=== PATIENT | female | born 2000 | race Caucasian/White ===

== ENCOUNTER 2024-06-23 07:42 | Inpatient (IN) ==
[2024-06-23] MEDS ORDERED: OXYTOCIN 30 UNITS/NSS 30 UNITS/500 ML BAG IV PRN (08:14)
[2024-06-23] MEDS ORDERED: LIDOCAINE 1% LOCAL 20 ML VIAL INFIL PRN (08:14)
--- NOTE | 2024-06-23 08:18 | History & Physical Report ---
Date of Service June 23, 2024 Assessment & Plan (1) 38 weeks gestation of : (2) IUGR (intrauterine growth restriction) affecting care of mother: (3) Gestational diabetes mellitus (GDM) affecting , antepartum: Plan admit for iol. Much more favorable cervix. STart pitocin. arom when indicated. fetus category one. Anticipate . check blood sugar q 2 hrs. Admission and Anticipated Discharge Date Admission Date: June 23, 2024 History of Present Illness Chief Complaint: iol, iugr Primary Care Provider: NO PCP Patient is a 23yowf with iup at 38 6/7 weeks who presents for iol for iugr. Last measured efw 9%. Patient had bulb placed last night and it fell out around midnight. She has had some bleeding but minimal. Some cramping. and Delivery Plans Late presentation to care *dating by 3rd tri u/s *neg drug profile GDM at 30 wks *Begin monthly Growth US's @24wks IUGR 9%ile at 36 weeks *Twice weekly NST/DVP@Dx *Weeklyl doppler@Dx *Growth US Q4wk @Dx *Deliver [id number] (unless abnml flow) - IOL 06/23 *Deliver 37wks (less than 3rd%) OB Labs: Blood Type O Positive 04/12/24 Antibody Screen NEGATIVE 04/12/24 Hgb 11.8 g/dl (12.0-16.0) L 04/12/24 Hct 36.4 % (37.0-47.0) L 04/12/24 MCV 86.3 fL (80.0-100.0) 04/12/24 Plt Count 230 K/uL (130-400) 04/12/24 VZV IgG Antibody 256.60 index 04/16/23 Rubella IgG Antibody Immune (Immune) 04/12/24 Treponema pallidum Ab Negative (Negative) 04/12/24 Hep Bs Antigen Negative (Negative) 04/12/24 Hepatitis C Antibody Negative (Negative) 04/12/24 Hepatitis C Ab (EIA) NON-REACTIVE (NON-REACTIVE) 04/16/23 HIV 1&2 Ab/P24 Ag 4thGn Negative (Negative) 04/12/24 Glucose 1 Hr 50 gm 137 mg/dl (70-130) H 04/12/24 OB Optional Labs: Chlamydia trachomatis RNA Not Detected (NotDetected) 04/12/24 Neisseria gonorrhoeae RNA Not Detected (NotDetected) 04/12/24 gbs neg Allergies Allergy/AdvReac Type Severity Reaction Status Date / Time Sulfa (Sulfonamide Allergy Intermediate Hives Verified 06/22/24 10:47 Antibiotics) Home Medications Medication Instructions Recorded Confirmed Type blood sugar diagnostic (OneTouch #120 ea 05/27/24 06/22/24 Rx Verio test strips) blood-glucose meter (OneTouch #1 ea 05/27/24 06/22/24 Rx Verio Reflect Meter) lancets 33 gauge (OneTouch Delica #120 ea 05/27/24 06/22/24 Rx Plus Lancet) vits no.124-ferrous fum 1 tab PO HS 06/20/24 06/22/24 History 27 mg iron-folic acid 800 mcg tablet ( Vitamin) Patient History Medical History History of PCOS History of chicken pox Depression with anxiety Surgical History No history of previous surgery Family History Mother Hypertension Depression Denies family history of Ovarian cancer Breast cancer Colorectal cancer Social History Smoking Status: Former smoker Tobacco Type: E-cigarettes / Vaping Second Hand Exposure: No; Do You Dip or Chew Tobacco: No; Tobacco Cessation Education Requested by Patient: No Hx Alcohol Use: No Hx Substance Use: No Preferred Language: [place] Communication Ability: Effective [place] Lineman Required: No Beliefs That Will Affect Care: None marital status: Single marital status details: anahi Lyons (30) [phone] Current Living Situation: Significant Other Current Living Situation Comment: Avelino Bennett current occupational status: employed 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 Other Information That Helps Us Care for You: No Feels Safe at Home: Yes Safety Concerns: Feels Safe At This Time Assistive Devices: None OB History g1 present Physical Exam Constitutional: WD/WN, vitals as above Cardiovascular: Extremities: no calf tenderness and no edema Gastrointestinal (Abdomen): obese, soft, nt Psychiatric: A+Ox3, euthymic affect Genitourinary: cx--3-4/75/-2/soft/post too--cl efm--140s wtih mod variability accels to 150s, no decels Results & Data Vital Signs (Past 12 Hours) Vital Signs Pulse BP 06/23/24 08:14 90 139/85 Code Status & VTE Plan VTE Prophylaxis Plan VTE Prophylaxis will be ordered: No Coding Level of Care Code None Diagnoses 38 weeks gestation of Z3A.38 IUGR (intrauterine growth restriction) affecting care of mother O36.5990 Gestational diabetes mellitus (GDM) affecting , antepartum O24.419
[2024-06-23] MEDS: LACTATED RINGER'S 1,000 ML IV PRN (08:45)
[2024-06-23] MEDS: OXYTOCIN 30 UNITS/NSS 30 UNITS/500 ML BAG IV PRN (09:02)
[2024-06-23 09:12] LABS: Hemoglobin 12.5 g/dl (12.0-16.0); Mean Corpuscular Hemoglobin 28.9 pg (25.0-34.0); Mean Corpuscular Hgb Conc 32.9 g/dL (32.0-36.0); Mean Platelet Volume 11.8 fL (9.4-12.4); Platelet Count 187 K/uL (130-400); RDW Coefficient of Variation 15.7 % (11.5-14.5); RDW Standard Deviation 50.2 fL (36.4-46.3); Red Blood Count 4.32 M/uL (4.20-5.40); White Blood Count 13.22 K/ul (4.8-10.8)
--- NOTE | 2024-06-23 09:45 | Labor Progress Brief Note ---
Date of Service June 23, 2024 Subjective ctsp because of an essentially spontaneous decel to the 70s that lasted about 5 minutes. the pit had just been started 15 min before and was only at 2. Patient notes she felt crampy at the time and also there was movement. Assessment & Plan (1) IUGR (intrauterine growth restriction) affecting care of mother: Plan Discussed that this is a bit concerning given that we have just started the induction. this may be a one time event or associated with movement. However, it could be a sign that this fetus is not going to tolerate any stress. Discussed this in detail with the patient and . As have had complete recovery, we can continue the induction process. However if this continues, would recommend proceeding with c/s delivery. they express understanding. As the fetus has recovered, will restart pitocin. Admission and Anticipated Discharge Date Admission Date: June 23, 2024 Physical Exam Physical Exam: cx--deferred toco--cl efm--decel to 70s that lasted for about 5 min. Now 150s with mod variability, accels to 170s, no decels resolved with position change and stop pit Results & Data Vital Signs (Past 12 Hours) Vital Signs Temp Pulse Resp BP Pulse Ox 06/23/24 09:37 85 98 06/23/24 09:36 88 122/70 06/23/24 09:32 82 98 06/23/24 09:27 88 98 06/23/24 09:22 82 98 06/23/24 09:21 91 H 135/85 06/23/24 09:06 88 137/83 06/23/24 08:16 37.0 C 90 20 139/85 06/23/24 08:14 90 139/85 Coding Level of Care Code None Diagnoses IUGR (intrauterine growth restriction) affecting care of mother O36.5990
[2024-06-23] MEDS: CALCIUM CARBONATE 500 MG CHEWABLE TAB PO PRN (09:57)
--- NOTE | 2024-06-23 14:05 | Labor Progress Brief Note ---
Date of Service June 23, 2024 Subjective Discussed situation with patient and in a pretty good contraction pattern and would recommend arom. she is ok with proceeding. Assessment & Plan (1) 38 weeks gestation of : (2) IUGR (intrauterine growth restriction) affecting care of mother: Plan arom for clear fluid. Fetus category one. continue pitocin. anticipate . Admission and Anticipated Discharge Date Admission Date: June 23, 2024 Physical Exam Physical Exam: cx--/-2 arom--clear fluid toco--q2-4min, pit at 8 efm--140s with mod varaibility, accels to 160s, no decels Results & Data Vital Signs (Past 12 Hours) Vital Signs Temp Pulse Resp BP Pulse Ox 06/23/24 14:01 96 H 96 06/23/24 13:56 92 H 97 06/23/24 13:51 97 06/23/24 13:51 90 06/23/24 13:51 88 127/63 06/23/24 13:46 89 96 06/23/24 13:41 95 H 96 06/23/24 13:36 94 H 124/70 96 06/23/24 13:31 91 H 97 06/23/24 13:15 95 H 97 06/23/24 13:10 87 97 06/23/24 13:07 88 136/63 06/23/24 13:05 96 H 97 06/23/24 13:00 88 96 06/23/24 12:55 88 96 06/23/24 12:50 90 122/64 96 06/23/24 12:45 92 H 97 06/23/24 12:40 89 96 06/23/24 12:36 86 118/69 06/23/24 12:35 87 97 06/23/24 12:30 102 H 97 06/23/24 12:25 93 H 97 06/23/24 12:21 86 138/85 06/23/24 12:20 92 H 96 06/23/24 12:15 97 H 97 06/23/24 12:10 88 96 06/23/24 12:07 87 139/91 06/23/24 12:05 90 97 06/23/24 12:00 90 97 06/23/24 11:55 90 96 06/23/24 11:44 86 97 06/23/24 11:39 87 97 06/23/24 11:37 92 H 131/71 06/23/24 11:34 89 97 06/23/24 11:29 91 H 96 06/23/24 11:24 94 H 97 06/23/24 11:22 95 H 130/77 06/23/24 11:19 87 97 06/23/24 11:14 91 H 97 06/23/24 11:09 94 H 97 06/23/24 11:07 83 148/87 H 06/23/24 11:04 89 97 06/23/24 10:59 90 96 06/23/24 10:54 84 97 06/23/24 10:51 85 126/68 06/23/24 10:49 87 96 06/23/24 10:44 102 H 96 06/23/24 10:39 98 H 97 06/23/24 10:36 99 H 119/71 06/23/24 10:34 92 H 97 06/23/24 10:29 82 96 06/23/24 10:24 82 95 06/23/24 10:22 82 120/71 06/23/24 10:19 83 96 06/23/24 10:14 80 96 06/23/24 10:09 81 97 06/23/24 10:06 82 121/72 06/23/24 10:04 79 97 06/23/24 09:59 88 97 06/23/24 09:54 81 98 06/23/24 09:47 99 H 97 06/23/24 09:42 86 98 06/23/24 09:37 85 98 06/23/24 09:36 88 122/70 06/23/24 09:32 82 98 06/23/24 09:27 88 98 06/23/24 09:22 82 98 06/23/24 09:21 91 H 135/85 06/23/24 09:06 88 137/83 06/23/24 08:16 37.0 C 90 20 139/85 06/23/24 08:14 90 139/85 Coding Level of Care Code None Diagnoses 38 weeks gestation of Z3A.38 IUGR (intrauterine growth restriction) affecting care of mother O36.5990
--- NOTE | 2024-06-23 15:09 | Communication Note ---
Date of Service: June 23, 2024 patient got up to go to the bathroom and when returned baby was in the 90s, recovered spontaneously, now in 150s. Continued to discuss concerns for situation. Feel we can still proceed with current plan of continued attempt at vaginal delivery as fetus has recovered. Discussed worst case senario would be a decel that occurs without recovery and need for stat c/s. Patient expresses understanding of the situation. She is ok with continued management.
--- NOTE | 2024-06-23 16:04 | Anesthesiology Consultation ---
Date of Service June 23, 2024 Assessment & Plan Chart Review Chart Review: Patient NOT seen in Pre Admission Testing and Acceptable Risk for Labor Epidural Consults Requested none ASA ASA3 Proposed Anesthesia Anesthesia Type: Labor Epidural Risk / Benefits Reviewed With: PT / POA / Parent / Guardian, Accepts Plan and Informed Consent Obtained History Height/Weight Height: 5 ft 3 in Weight: 115.666 kg Allergies Allergy/AdvReac Type Severity Reaction Status Date / Time Sulfa (Sulfonamide Allergy Intermediate Hives Verified 06/22/24 10:47 Antibiotics) Medications Home Medications Medication Instructions Recorded Confirmed Last Taken blood sugar diagnostic (OneTouch #120 ea 05/27/24 06/22/24 Unknown Verio test strips) blood-glucose meter (OneTouch #1 ea 05/27/24 06/22/24 Unknown Verio Reflect Meter) lancets 33 gauge (OneTouch Delica #120 ea 05/27/24 06/22/24 Unknown Plus Lancet) vits no.124-ferrous fum 1 tab PO HS 06/20/24 06/22/24 06/22/24 27 mg iron-folic acid 800 mcg tablet ( Vitamin) Active Medications Generic Name Dose Route Start Last Admin Trade Name Freq PRN Reason Stop Dose Admin Calcium Carbonate 500 mg 06/23/24 08:14 06/23/24 09:57 Calcium Carbonate 500 Mg Chewable Tab PO 07/23/24 08:13 500 mg Q6H PRN Administration Indigestion Lactated Ringer's 1,000 mls @ 125 mls/hr 06/23/24 08:14 06/23/24 08:45 Lr IV 06/25/24 08:13 125 mls/hr .Q8H PRN Administration L&D Protocol Protocol Oxytocin 30 units in 500 mls @ 10 mls/hr 06/23/24 08:33 06/23/24 14:45 Pitocin 30 Units/Nss IV 06/25/24 08:32 0.6 units/hr .Q24H PRN 10 mls/hr Labor Induction/Augmentation Titration Protocol 0.6 UNITS/HR NPO Date Last Intake of Fluids: 06/23/24 Time Last Intake of Fluids: 15:00 Date Last Intake of Solids: 06/23/24 Time Last Intake of Solids: 06:30 Past Medical History Medical History History of PCOS History of chicken pox Depression with anxiety Exercise / Class Metabolic Activity 1 > 8 Run/Swim/Ski/Tennis Past Family History Family History Mother Hypertension Depression Denies family history of Ovarian cancer Breast cancer Colorectal cancer Past Surgical History Surgical History No history of previous surgery Past Anesthesia History No Hx of Anesthesia Complications and No Family Hx of Anesthesia Complications History of PONV No Hx of PONV and No Hx of Motion Sickness Social History Smoking Status: Former smoker Do You Dip or Chew Tobacco: No Hx Alcohol Use: No Hx Substance Use: No Review of Systems ROS Unobtainable: All systems reviewed & are unremarkable except as noted in HPI & below Physical Exam Vital Signs Last Vital Signs Temp 37.0 C 06/23/24 14:00 Pulse 94 H 06/23/24 15:58 Resp 16 06/23/24 14:00 BP 111/64 06/23/24 15:37 Pulse Ox 97 06/23/24 15:58 ENMT Mouth: no TMJ abnormality Thyromental Distance: > or= 3.5 Finger Breadths Mallampati Class: II Neck normal visual inspection and trachea midline; neck extension not limited Respiratory normal respiratory effort Auscultation: lungs clear to auscultation bilaterally Cardiovascular Rate/Rhythm: regular rate and regular rhythm Heart Sounds: no murmur Musculoskeletal Spine: normal cervical ROM Extremities: full ROM of extremities Neurologic moves all extremities Psychiatric Orientation: alert and oriented x 3 Testing Laboratory Results 06/23/24 08:40 Blood Type Cancelled 06/23/24 08:40 Blood Type O Positive 06/23/24 08:40 Antibody Screen Cancelled 06/23/24 08:40 Antibody Screen NEGATIVE 06/23/24 08:40 06/23/24 06/23/24 06/23/24 14:47 11:06 08:57 POC Glucose 73 75 97
[2024-06-23] MEDS: LIDOCAINE 2%/EPINEPHRINE 1:200,000 20 ML PF ONE (16:18)
[2024-06-23] MEDS: BUPIVACAINE 0.25% PF 30 ML VIAL ONE (16:18)
[2024-06-23] MEDS: fentaNYL citrate PF 100 MCG/2 ML VIAL ONE (16:18)
[2024-06-23] MEDS: fentANYL 2 MCG/ML BUPIVacaine 0.125%-NSS 100ML BAG ONE (16:18)
[2024-06-23] MEDS: SODIUM CHLORIDE 0.9% PF INJ 10 ML VIAL ONE (16:18)
[2024-06-23] MEDS: ACETAMINOPHEN 325 MG TAB PO PRN (16:30)
[2024-06-23] MEDS: ePHEDrine sulfate 50 MG/ML AMP ONE ×2 (16:34→17:09)
--- NOTE | 2024-06-23 16:54 | Labor Progress Brief Note ---
Date of Service June 23, 2024 Subjective comfortable after epidural Assessment & Plan (1) 38 weeks gestation of : (2) IUGR (intrauterine growth restriction) affecting care of mother: Plan continue current mangement. recheck in 2 hours. If unchanged, consider iupc as want to be cautious with the pitocin given iugr and situation. fetus is category one. Admission and Anticipated Discharge Date Admission Date: June 23, 2024 Physical Exam Physical Exam: cx--4/75/-2/more ant toco--q2-3min, pit at 10 efm--130s with mod varaibility, accels to 150s, no decels Results & Data Vital Signs (Past 12 Hours) Vital Signs Temp Pulse Resp BP Pulse Ox 06/23/24 16:48 106 H 96 06/23/24 16:43 101 H 96 06/23/24 16:38 101 H 96 06/23/24 16:35 93 H 132/75 06/23/24 16:33 92 H 126/75 97 06/23/24 16:29 90 122/67 06/23/24 16:28 93 H 96 06/23/24 16:27 90 120/68 06/23/24 16:25 93 H 123/72 06/23/24 16:23 95 H 124/67 97 06/23/24 16:21 89 06/23/24 16:21 129/72 06/23/24 16:21 90 129/69 06/23/24 16:18 97 06/23/24 16:18 86 06/23/24 16:18 84 152/81 H 06/23/24 16:13 92 H 98 06/23/24 16:08 92 H 97 06/23/24 16:06 85 149/89 H 06/23/24 16:03 93 H 97 06/23/24 16:00 37.0 C 06/23/24 15:58 94 H 97 06/23/24 15:47 91 H 96 06/23/24 15:42 91 H 97 06/23/24 15:37 88 111/64 98 06/23/24 15:32 90 97 06/23/24 15:27 85 97 06/23/24 15:22 85 97 06/23/24 15:21 83 146/81 H 06/23/24 15:17 79 96 06/23/24 15:12 87 96 06/23/24 15:07 82 97 06/23/24 15:06 83 135/77 06/23/24 15:02 81 97 06/23/24 14:57 87 97 06/23/24 14:46 89 96 06/23/24 14:41 85 97 06/23/24 14:37 84 131/76 06/23/24 14:36 85 96 06/23/24 14:31 87 96 06/23/24 14:26 88 96 06/23/24 14:21 97 06/23/24 14:21 91 H 06/23/24 14:21 88 131/77 06/23/24 14:16 84 97 06/23/24 14:11 85 96 06/23/24 14:06 85 132/69 96 06/23/24 14:01 96 H 96 06/23/24 14:00 16 06/23/24 14:00 37.0 C 16 06/23/24 13:56 92 H 97 06/23/24 13:51 97 06/23/24 13:51 90 06/23/24 13:51 88 127/63 06/23/24 13:46 89 96 06/23/24 13:41 95 H 96 06/23/24 13:36 94 H 124/70 96 06/23/24 13:31 91 H 97 06/23/24 13:15 95 H 97 06/23/24 13:10 87 97 06/23/24 13:07 88 136/63 06/23/24 13:05 96 H 97 06/23/24 13:00 88 96 06/23/24 12:55 88 96 06/23/24 12:50 90 122/64 96 06/23/24 12:45 92 H 97 06/23/24 12:40 89 96 06/23/24 12:36 86 118/69 06/23/24 12:35 87 97 06/23/24 12:30 102 H 97 06/23/24 12:25 93 H 97 06/23/24 12:21 86 138/85 06/23/24 12:20 92 H 96 06/23/24 12:15 97 H 97 06/23/24 12:10 88 96 06/23/24 12:07 87 139/91 06/23/24 12:05 90 97 06/23/24 12:00 90 97 06/23/24 11:55 90 96 06/23/24 11:44 86 97 06/23/24 11:39 87 97 06/23/24 11:37 92 H 131/71 06/23/24 11:34 89 97 06/23/24 11:29 91 H 96 06/23/24 11:24 94 H 97 06/23/24 11:22 95 H 130/77 06/23/24 11:19 87 97 06/23/24 11:14 91 H 97 06/23/24 11:09 94 H 97 06/23/24 11:07 83 148/87 H 06/23/24 11:04 89 97 06/23/24 10:59 90 96 06/23/24 10:54 84 97 06/23/24 10:51 85 126/68 06/23/24 10:49 87 96 06/23/24 10:44 102 H 96 06/23/24 10:39 98 H 97 06/23/24 10:36 99 H 119/71 06/23/24 10:34 92 H 97 06/23/24 10:29 82 96 06/23/24 10:24 82 95 06/23/24 10:22 82 120/71 06/23/24 10:19 83 96 06/23/24 10:14 80 96 06/23/24 10:09 81 97 06/23/24 10:06 82 121/72 06/23/24 10:04 79 97 06/23/24 09:59 88 97 06/23/24 09:54 81 98 06/23/24 09:47 99 H 97 06/23/24 09:42 86 98 06/23/24 09:37 85 98 06/23/24 09:36 88 122/70 06/23/24 09:32 82 98 06/23/24 09:27 88 98 06/23/24 09:22 82 98 06/23/24 09:21 91 H 135/85 06/23/24 09:06 88 137/83 06/23/24 08:16 37.0 C 90 20 139/85 06/23/24 08:14 90 139/85 Coding Level of Care Code None Diagnoses 38 weeks gestation of Z3A.38 IUGR (intrauterine growth restriction) affecting care of mother O36.5990
--- NOTE | 2024-06-23 17:21 | Communication Note ---
Date of Service: June 23, 2024 stat c/s called for decreased tones. Tones came up while preparing for OR. Will use epidural for anesthesia with back up GA. ASA 3E
[2024-06-23] MEDS ORDERED: AZITHROMYCIN 500 MG in DEXTROSE 5% 250 ML IV SCH (17:30)
[2024-06-23] MEDS ORDERED: ACETAMINOPHEN 500 MG TAB PO ONE (17:30)
[2024-06-23] MEDS ORDERED: CITRIC ACID/SODIUM CITRATE 15 ML UDC PO ONE (17:30)
[2024-06-23] MEDS ORDERED: ceFAZolin 3000MG 3,000 MG/72.5 ML BAG IV SCH (17:30)
[2024-06-23] MEDS ORDERED: MoRPHine SULFATE PF 1 MG/ML 10 ML AMP/VIAL ONE (17:48)
[2024-06-23] MEDS ORDERED: DEXAMETHASONE SOD INJ 4 MG/ML VIAL ONE (17:48)
[2024-06-23] MEDS ORDERED: ONDANSETRON INJ 2 MG/ML 2 ML VIAL ONE ×2 (17:48→18:09)
[2024-06-23] MEDS ORDERED: OXYTOCIN 10 UNITS/ML VIAL ONE ×2 (17:56→18:00)
[2024-06-23] MEDS ORDERED: PHENYLEPHRINE HCL 25 MG/250 ML NSS IV ONE (17:56)
[2024-06-23] MEDS ORDERED: KETOROLAC 30 MG/ML VIAL ONE (18:00)
[2024-06-23 18:08] LABS: Base Excess Cord Arterial Bld -5.9 mEq/L (-9-1.8); CO2 Cord Arterial Blood 65 mmHg (39.1-73.5); HCO3 Cord Arterial Blood 24 mmol/L (19.7-28.5); Oxygen Sat Cord Arterial Blood < 60.0 % (<60); PO2 Cord Arterial Blood < 20 mmHg (4.1-31.7); pH Cord Arterial Blood 7.17 (7.1-7.38)
[2024-06-23 18:09] LABS: Base Excess Cord Venous Blood -4.2 mEq/L (-7.7-1.9); Cord Venous Blood HCO3 24 mmol/L (18.4-26.8); Cord Venous Blood PCO2 56 mmHg (30.4-57.2); Cord Venous Blood PO2 < 20 mmHg (14.1-43.3); Cord Venous Blood pH 7.24 (7.20-7.44); O2 Saturation Cord Venous Bld < 60.0 % (<68)
[2024-06-23] MEDS ORDERED: LACTATED RINGER'S 1,000 ML IV SCH ×2 (18:15→18:34)
--- NOTE | 2024-06-23 18:19 | Anesthesia Procedure Note ---
Date of Service June 23, 2024 Anesthesia Post Epidural Note Vital Signs Vital Signs: Temp Pulse Resp BP Pulse Ox 37.0 C 107 H 16 123/64 99 06/23/24 16:00 06/23/24 17:15 06/23/24 17:00 06/23/24 17:06 06/23/24 17:15 Notes Mental Status: alert / awake / arousable and participated in evaluation Nausea / Vomiting: adequately controlled Pain: adequately controlled Airway Patency, RR, SpO2: stable & adequate BP & HR: stable & adequate Hydration State: stable & adequate Neuraxial Anesthesia: was administered and sensory block is resolving Anesthetic Complications: no major complications apparent Epidural: Removed without complications and With tip intact
--- NOTE | 2024-06-23 18:21 | Anesthesiology Progress Note ---
Date of Service June 23, 2024 Anesthesia Post Procedure Vital Signs Vital Signs: Temp Pulse Resp BP Pulse Ox 06/23/24 17:15 107 H 99 06/23/24 17:10 113 H 99 06/23/24 17:06 81 123/64 06/23/24 17:03 89 96 06/23/24 17:02 75 94 06/23/24 17:00 81 16 86/42 L 06/23/24 16:58 103 H 98 06/23/24 16:53 97 H 96 06/23/24 16:52 94 H 121/66 06/23/24 16:48 106 H 96 06/23/24 16:43 101 H 96 06/23/24 16:38 101 H 96 06/23/24 16:35 93 H 132/75 06/23/24 16:33 92 H 126/75 97 06/23/24 16:30 18 06/23/24 16:30 18 06/23/24 16:29 90 122/67 06/23/24 16:28 93 H 96 06/23/24 16:27 90 120/68 06/23/24 16:26 16 06/23/24 16:26 16 06/23/24 16:25 93 H 123/72 06/23/24 16:23 95 H 124/67 97 06/23/24 16:22 16 06/23/24 16:22 16 06/23/24 16:21 89 06/23/24 16:21 129/72 06/23/24 16:21 90 129/69 06/23/24 16:19 18 06/23/24 16:19 18 06/23/24 16:18 97 06/23/24 16:18 86 06/23/24 16:18 84 152/81 H 06/23/24 16:13 92 H 98 06/23/24 16:08 92 H 97 06/23/24 16:06 85 149/89 H 06/23/24 16:03 93 H 97 06/23/24 16:00 37.0 C 06/23/24 15:58 94 H 97 06/23/24 15:47 91 H 96 06/23/24 15:42 91 H 97 06/23/24 15:37 88 111/64 98 06/23/24 15:32 90 97 06/23/24 15:27 85 97 06/23/24 15:22 85 97 06/23/24 15:21 83 146/81 H 06/23/24 15:17 79 96 06/23/24 15:12 87 96 06/23/24 15:07 82 97 06/23/24 15:06 83 135/77 06/23/24 15:02 81 97 06/23/24 14:57 87 97 06/23/24 14:46 89 96 06/23/24 14:41 85 97 06/23/24 14:37 84 131/76 06/23/24 14:36 85 96 06/23/24 14:31 87 96 06/23/24 14:26 88 96 06/23/24 14:21 97 06/23/24 14:21 91 H 06/23/24 14:21 88 131/77 06/23/24 14:16 84 97 06/23/24 14:11 85 96 06/23/24 14:06 85 132/69 96 06/23/24 14:01 96 H 96 06/23/24 14:00 16 06/23/24 14:00 37.0 C 16 06/23/24 13:56 92 H 97 06/23/24 13:51 97 06/23/24 13:51 90 06/23/24 13:51 88 127/63 06/23/24 13:46 89 96 06/23/24 13:41 95 H 96 06/23/24 13:36 94 H 124/70 96 06/23/24 13:31 91 H 97 06/23/24 13:15 95 H 97 06/23/24 13:10 87 97 06/23/24 13:07 88 136/63 06/23/24 13:05 96 H 97 06/23/24 13:00 88 96 06/23/24 12:55 88 96 06/23/24 12:50 90 122/64 96 06/23/24 12:45 92 H 97 06/23/24 12:40 89 96 06/23/24 12:36 86 118/69 06/23/24 12:35 87 97 06/23/24 12:30 102 H 97 06/23/24 12:25 93 H 97 06/23/24 12:21 86 138/85 06/23/24 12:20 92 H 96 06/23/24 12:15 97 H 97 06/23/24 12:10 88 96 06/23/24 12:07 87 139/91 06/23/24 12:05 90 97 06/23/24 12:00 90 97 06/23/24 11:55 90 96 06/23/24 11:44 86 97 06/23/24 11:39 87 97 06/23/24 11:37 92 H 131/71 06/23/24 11:34 89 97 06/23/24 11:29 91 H 96 06/23/24 11:24 94 H 97 06/23/24 11:22 95 H 130/77 06/23/24 11:19 87 97 06/23/24 11:14 91 H 97 06/23/24 11:09 94 H 97 06/23/24 11:07 83 148/87 H 06/23/24 11:04 89 97 06/23/24 10:59 90 96 06/23/24 10:54 84 97 06/23/24 10:51 85 126/68 06/23/24 10:49 87 96 06/23/24 10:44 102 H 96 06/23/24 10:39 98 H 97 06/23/24 10:36 99 H 119/71 06/23/24 10:34 92 H 97 06/23/24 10:29 82 96 06/23/24 10:24 82 95 06/23/24 10:22 82 120/71 06/23/24 10:19 83 96 06/23/24 10:14 80 96 06/23/24 10:09 81 97 06/23/24 10:06 82 121/72 06/23/24 10:04 79 97 06/23/24 09:59 88 97 06/23/24 09:54 81 98 06/23/24 09:47 99 H 97 06/23/24 09:42 86 98 06/23/24 09:37 85 98 06/23/24 09:36 88 122/70 06/23/24 09:32 82 98 06/23/24 09:27 88 98 06/23/24 09:22 82 98 06/23/24 09:21 91 H 135/85 06/23/24 09:06 88 137/83 06/23/24 08:16 37.0 C 90 20 139/85 06/23/24 08:14 90 139/85 Transfer of Care Handoff Completed per policy Notes Mental Status: alert / awake / arousable Patient Amnestic to Procedure: Yes Nausea / Vomiting: adequately controlled Pain: adequately controlled Airway Patency, RR, SpO2: stable & adequate BP & HR: stable & adequate Hydration State: stable & adequate Neuraxial Anesthesia: was administered and sensory block is resolving Anesthetic Complications: no major complications apparent and Pt Satisfied with anesthetic care Notes: BP at 6:21 pm 122/58
--- NOTE | 2024-06-23 18:26 | Communication Note ---
Date of Service: June 23, 2024 Patient got epidural and was comfortable. I then checked her and she was unchanged. Shortly thereafter, there was a decel to the 60s, patient had also dropped her blood pressure to 80/40s. Recussicitation done and hypotention treated however the baby was slow to recover . After 5 minutes in the 60s without showing any signs of trying to recover, I called an emergent c/s. While preparing for this, the fetus did recover to 150s but with minimal variability. After discussion with the patient and her partner, decision made to proceed with c/s anyway but under more controlled situation allowing dosing of epidural. Baby was in the 150s when moved to the OR. Consent reviewed and signed.
--- NOTE | 2024-06-23 18:33 | Operative Report ---
PG Post Operative Report Pre & Post Diagnosis Operation Date: 06/23/24 17:26 Pre-Op Diagnosis: intrauterine at 38 6/7 weeks, intolerance to labor Post-Op Diagnosis: same I identified the patient and participated in the time-out.: Yes Procedure Operation Date: 06/23/24 17:26 Actual Procedures p Primary low transverse Section in for living male child at 1741(Bilateral) - Niurka Love MD, FACOG Surgeon Niurka Love MD, FACOG It Consulting Manager Tania Jameson RN Estimated Blood Loss 556 (QBL) Findings Consistent with Post-Op Diagnosis normal appearing uterus tubes and ovaries fetus in cephalic presentation. clear fluid. apgars 1/9. nuchal cord x 2 Fluids 1000cc uop--100cc clear urine Specimens placenta cord gases Drains barrientos Anesthesia Type Labor Epidural Complications none Disposition Accompanied Patient To Recovery: Yes Disposition: L&D Indications Patient is a 23yowf with iup at 38 6/7 weeks with late presentation to care and iol for IUGR. Fetus had a couple of decels with minimal stress. Then had a decel to the 60s for 5+minutes and decision made to proceed with c/s. Description of Procedure The patient was taken to the operating room where she was identified verbally and by bracelet. She was moved to the operating table where epidural anesthetic was dosed by anesthesia. She was then placed in the supine position with a leftward tilt. A Barrientos catheter had previously been placed sterilely. the patient was prepped and draped in a normal standard fashion. the anesthetic was tested and found to be adequate. A time-out was held, identifying correct patient, procedure, positioning and preoperative antibiotics. There were no concerns. A Pfannenstiel skin incision was made with a knife and taken down to the underlying layer of fascia with the knife and Bovie electrocautery. Bleeding was attended to with the Bovie. The fascia was incised in the midline with the knife and taken out laterally with scissors. The superior edge of the fascial incision was grasped, elevated and the underlying layer of rectus muscle was taken off bluntly and with scissors. In a similar fashion, the inferior edge of the fascial incision was grasped, elevated and the underlying layer of rectus muscle was taken off bluntly and with scissors. The muscles were bluntly in the midline. The peritoneum was entered bluntly. The incision was then stretched. The bladder blade was placed. The vesicouterine peritoneum was identified, entered with scissors and taken out laterally with scissors. The bladder flap was created digitally A hysterotomy incision was scored with a knife and the incision was stretched superiorly and inferiorly with the cnc set up operator's fingers. The operators hand was placed into the incision and the head was delivered atraumatically. Nuchal cord x 2 was noted. The nose and mouth were bulb suctioned. the rest of the infant was then delivered without difficulty. The nose and mouth were again bulb suctioned. The cord was clamped and cut and the infant was then handed off to the awaiting assurance associate for drying and attention. Cord blood and segment were obtained. The placenta was expressed. The uterus was exteriorized and cleared of all clot and debris with moistened laparotomy sponges. The hysterotomy incision was repaired in two layers, the first in a running locked layer, the second in an imbricating layer. Hemostasis was noted to be good. Posterior cul-de-sac was irrigated and cleared of all clot and debris. The hysterotomy incision was again inspected and 3 sutures were needed for hemostasis. the uterus was cheikh nteriorized. Hysterotomy incision was again inspected and 2 more sutures were needed for hemostasis. Rectus muscles were hemostatic. The fascia was then reapproximated with 0 Vicryl starting at the edges and meeting in the midline. The subcuticular tissues were copiously irrigated and bleeding was attended to with cautery. The skin was then closed with 4-0 Vicryl in a subcuticular fashion. All sponge lap and needle counts were correct x 2. The patient tolerated the procedure well and was taken to the recovery room in stable condition. I attest to the content of the Intraoperative Record and any orders documented therein. Any exceptions are noted below.
[2024-06-23] MEDS ORDERED: HYDROCORTISONE ACETATE 25 MG SUPP PR PRN (18:34)
[2024-06-23] MEDS ORDERED: MAGNESIUM HYDROXIDE SUSP 30 ML UDC PO PRN (18:34)
[2024-06-23] MEDS ORDERED: PROMETHAZINE 12.5 MG/50.5 ML BAG IV PRN (18:34)
[2024-06-23] MEDS ORDERED: oxyCODONE HCL IR 5 MG TAB (IMMEDIATE RELEASE) PO PRN (18:34)
[2024-06-23] MEDS ORDERED: diphenhydrAMINE 50 MG/ML VIAL IV PRN ×2 (18:34→22:26)
[2024-06-23] MEDS ORDERED: ONDANSETRON INJ 2 MG/ML 2 ML VIAL IV PRN ×2 (18:34→22:26)
[2024-06-23] MEDS ORDERED: BENZOCAINE 20% SPRY 85 APPLN/85 GM CAN EXT PRN (18:34)
[2024-06-23] MEDS ORDERED: SENNA 8.6 MG TAB PO PRN (18:34)
[2024-06-23] MEDS ORDERED: diphenhydrAMINE Capsule 25 MG CAP PO PRN (18:34)
[2024-06-23] MEDS ORDERED: HYDROmorphone INJ 0.5 MG/0.5 ML SYR IV PRN ×2 (18:34→22:26)
[2024-06-23] MEDS ORDERED: NALBUPHINE HCL INJ 10 MG/ML AMP IV PRN (22:26)
[2024-06-23] MEDS ORDERED: METOCLOPRAMIDE HCL 20 MG in SODIUM CHLORIDE 0.9% 50 ML IV PRN (22:26)
[2024-06-23] MEDS ORDERED: NALOXONE HCL 0.4 MG/1 ML VIAL/CARP IV PRN (22:26)
[2024-06-23] MEDS ORDERED: MEPERIDINE HCL 25 MG/ML CARP/VIAL IV PRN (22:26)
[2024-06-23] MEDS ORDERED: KETOROLAC 30 MG/ML VIAL IV PRN (22:26)
[2024-06-23] MEDS ORDERED: NALOXONE HCL 0.08 MG in SYRINGE 1.8 ML IV PRN (22:26)
[2024-06-23] MEDS ORDERED: PROMETHAZINE 6.25 MG/50.25 ML BAG IV PRN (22:26)
[2024-06-23] MEDS ORDERED: MoRPHine SULFATE PF 1 MG/ML 10 ML AMP/VIAL EPI ONE (22:26)
[2024-06-23] MEDS ORDERED: ePHEDrine sulfate 50 MG/ML AMP IV PRN (22:26)
[2024-06-23] MEDS ORDERED: LACTATED RINGER'S 500 ML IV PRN (22:26)
[2024-06-23] MEDS ORDERED: DROPERIDOL 5 MG/2 ML VIAL IV PRN (22:26)
[2024-06-23] MEDS ORDERED: NALOXONE HCL 1 MG in SODIUM CHLORIDE 0.9% 1,000 ML IV PRN (22:26)
[2024-06-23] MEDS ORDERED: NO NARCOTICS OR SEDATIVES SCH (22:30)
[2024-06-23] MEDS ORDERED: SODIUM CHLORIDE 0.9% 1,000 ML IV SCH (22:30)
[2024-06-23] MEDS ORDERED: DC INTRASPINAL MORPHINE SCH (22:30)
[2024-06-23] MEDS: DIPHTHER/TETAN/PERTUS Vaccine (Tdap, Adol/Adult) 0.5mL IM ONE (22:32)
[2024-06-23] MEDS: OXYTOCIN 20 UNITS/LR 1,002 ML IV SCH (22:33)
[2024-06-23] MEDS: LACTATED RINGER'S 1,000 ML IV SCH (22:34)
[2024-06-23] MEDS ORDERED: IBUPROFEN 600 MG TAB PO SCH (23:30)
[2024-06-23] MEDS: ACETAMINOPHEN 325 MG TAB PO SCH (23:36)
[2024-06-23] MEDS: SIMETHICONE 80 MG CHEW PO SCH (23:37)
[2024-06-23] MEDS: DOCUSATE SODIUM 100 MG CAP PO SCH (23:37)
[2024-06-23] MEDS: KETOROLAC 30 MG/ML VIAL IV SCH (23:37)
--- NOTE | 2024-06-24 07:05 | Obstetrical Progress Note ---
Date of Service June 24, 2024 Assessment & Plan (1) Encounter for assessment: Plan: Patient is POD 1 s/p LTCS and doing well - Eating well, voiding well, ambulating well - vitals reviewed and within normal limits - pain well controlled with analgesics - OOB, ambulation, diet progression as tolerated - Blood type: O+, GBS neg, rubella immune - Plan to discharge tomorrow - After discharge, 6 week follow up with OB Admission and Anticipated Discharge Date Admission Date: June 23, 2024 Supervising Physician Co-Signing Physician Notes Resident Physician Supervision Note: I interviewed and examined the patient. Discussed with Dr. Solares and agree with findings and plan as documented in the note. Any exceptions or clarifications are listed here: Doing well. Routine care. Documented By: Niurka Love MD, FACOG Subjective 23 yo post-operative day 1 s/p LTCS Ambulation: ambulating normally Voiding: no voiding problems Passing Gas:: Yes Diet Tolerance:: regular diet Lochia:: Small Feeding Type:: breast feeding and bottle feeding Current Pain Level: 0-2/10 Resting comfortably this AM in NAD. Denies PALENCIA, CP, SOB, N/V/D, LE pain/swelling. Physical Exam Physical Exam: General: patient resting comfortably, NAD, non-toxic in appearance, answers questions appropriately. Skin: warm, dry, intact HEENT: NC/AT, anicteric sclera, conjunctiva without injection, moist mucus membranes. Heart: +S1/S2, regular, no m/r/g Lungs: equal air entry bilaterally, no rales/rhonchi/wheezes Abd: +BS, soft, NT/ND, uterine fundus firm at umbilicus Ext: warm, no clubbing/cyanosis or edema, Mimi's neg. Neuro: nonfocal, speech intact, no facial droop, moving all extremities. Results & Data Vital Signs (Past 12 Hours) Vital Signs Temp Pulse Pulse Resp BP BP Pulse Ox 06/24/24 06:00 18 97 06/24/24 05:00 18 98 06/24/24 04:00 18 98 06/24/24 03:39 36.7 C 98 H 16 131/75 100 06/24/24 03:00 18 98 06/24/24 02:00 18 94 06/24/24 01:00 18 95 06/24/24 00:00 18 96 06/23/24 23:00 18 95 06/23/24 22:03 36.7 C 91 H 18 128/80 94 06/23/24 22:00 18 94 06/23/24 21:45 93 06/23/24 21:45 90 06/23/24 21:41 94 06/23/24 21:41 100 H 06/23/24 21:40 94 06/23/24 21:40 92 H 06/23/24 21:35 92 06/23/24 21:35 93 H 06/23/24 21:32 94 06/23/24 21:32 99 H 06/23/24 21:30 105 H 90 06/23/24 21:25 97 H 94 06/23/24 21:20 89 93 06/23/24 21:17 98 H 94 06/23/24 21:15 101 H 96 06/23/24 21:10 95 06/23/24 21:10 79 06/23/24 21:10 79 94 06/23/24 21:05 83 95 06/23/24 21:04 82 94 06/23/24 21:00 89 95 06/23/24 20:58 91 H 06/23/24 20:58 94 H 131/75 92 06/23/24 20:55 96 H 95 06/23/24 20:50 98 H 96 06/23/24 20:48 85 92 06/23/24 20:45 95 H 97 06/23/24 20:40 100 H 96 06/23/24 20:35 85 95 06/23/24 20:32 86 94 06/23/24 20:30 104 H 95 06/23/24 20:25 97 06/23/24 20:25 85 06/23/24 20:25 87 131/72 06/23/24 20:20 36.8 C 16 95 06/23/24 20:20 89 95 06/23/24 20:15 106 H 95 06/23/24 20:10 103 H 97 06/23/24 20:05 92 H 95 06/23/24 20:00 92 H 96 06/23/24 19:55 102 H 96 06/23/24 19:51 95 H 94 06/23/24 19:50 36.9 C 16 96 06/23/24 19:50 98 H 95 06/23/24 19:45 98 H 96 06/23/24 19:40 94 H 96 06/23/24 19:35 109 H 96 06/23/24 19:30 93 H 96 06/23/24 19:25 98 H 96 06/23/24 19:20 36.9 C 16 99 06/23/24 19:20 90 97 06/23/24 19:15 90 96 06/23/24 19:13 87 120/62 06/23/24 19:10 16 06/23/24 19:10 89 96 06/23/24 19:05 91 H 96 06/23/24 19:03 87 128/62 O2 Del Method 06/24/24 06:00 06/24/24 05:00 06/24/24 04:00 06/24/24 03:39 Room Air 06/24/24 03:00 06/24/24 02:00 06/24/24 01:00 06/24/24 00:00 06/23/24 23:00 06/23/24 22:03 Room Air 06/23/24 22:00 06/23/24 21:45 06/23/24 21:45 06/23/24 21:41 06/23/24 21:41 06/23/24 21:40 06/23/24 21:40 06/23/24 21:35 06/23/24 21:35 06/23/24 21:32 06/23/24 21:32 06/23/24 21:30 06/23/24 21:25 06/23/24 21:20 06/23/24 21:17 06/23/24 21:15 06/23/24 21:10 06/23/24 21:10 06/23/24 21:10 06/23/24 21:05 06/23/24 21:04 06/23/24 21:00 06/23/24 20:58 06/23/24 20:58 06/23/24 20:55 06/23/24 20:50 06/23/24 20:48 06/23/24 20:45 06/23/24 20:40 06/23/24 20:35 06/23/24 20:32 06/23/24 20:30 06/23/24 20:25 06/23/24 20:25 06/23/24 20:25 06/23/24 20:20 Room Air 06/23/24 20:20 06/23/24 20:15 06/23/24 20:10 06/23/24 20:05 06/23/24 20:00 06/23/24 19:55 06/23/24 19:51 06/23/24 19:50 Room Air 06/23/24 19:50 06/23/24 19:45 06/23/24 19:40 06/23/24 19:35 06/23/24 19:30 06/23/24 19:25 06/23/24 19:20 06/23/24 19:20 06/23/24 19:15 06/23/24 19:13 06/23/24 19:10 06/23/24 19:10 06/23/24 19:05 06/23/24 19:03 Resident Activity Tracking Resident Involvement: Resident Care Provided Care Provided: OB Delivery (1) Encounter for assessment visit type: exam and care immediately after delivery Qualified Code(s): Z39.0 - Encounter for care and examination of mother immediately after delivery
[2024-06-24] MEDS: FERROUS SULFATE 325 MG TAB PO SCH (08:00)
[2024-06-24] MEDS: PRENATAL VITAMIN 1 TAB PO SCH (08:00)
[2024-06-24 08:04] LABS: Hematocrit (blood only) 34.4 % (37.0-47.0); Hemoglobin 11.5 g/dl (12.0-16.0); Mean Corpuscular Hemoglobin 29.3 pg (25.0-34.0); Mean Corpuscular Hgb Conc 33.4 g/dL (32.0-36.0); Mean Corpuscular Volume 87.8 fL (80.0-100.0); Platelet Count 215 K/uL (130-400); RDW Coefficient of Variation 15.9 % (11.5-14.5); RDW Standard Deviation 50.9 fL (36.4-46.3); Red Blood Count 3.92 M/uL (4.20-5.40); White Blood Count 21.67 K/ul (4.8-10.8)
[2024-06-24 08:05] LABS: Basophils # (auto) 0.05 K/uL (0.00-0.20); Basophils % (auto) 0.2 %; Immature Granulocytes # (auto) 0.18 K/uL (0.01-0.20); Immature Granulocytes % (auto) 0.8 %; Lymphocytes # (auto) 2.09 K/uL (1.20-3.40); Lymphocytes % (auto) 9.6 %; Monocytes # (auto) 1.36 K/uL (0.11-0.59); Monocytes % (auto) 6.3 %; Neutrophils # (auto) 17.99 K/uL (1.40-6.50); Neutrophils % (auto) 83.1 %
[2024-06-24 16:40] VITALS: O2SAT 97
[2024-06-24] MEDS ORDERED: bisacodyL 5 MG TABEC PO SCH (20:00)
[2024-06-24 23:29] VITALS: RESP 16
[2024-06-24] MEDS: IBUPROFEN 600 MG TAB PO SCH (23:38)
[2024-06-25] MEDS: CALCIUM CARBONATE 500 MG CHEWABLE TAB PO PRN (04:42)
[2024-06-25 06:44] LABS: Hematocrit (blood only) 31.6 % (37.0-47.0); Hemoglobin 10.3 g/dl (12.0-16.0)
--- NOTE | 2024-06-25 06:59 | Obstetrical Progress Note ---
Date of Service June 25, 2024 Assessment & Plan (1) Encounter for assessment: Plan: Patient is POD 2 s/p LTCS and doing well - Eating well, voiding well, ambulating well - vitals reviewed and within normal limits - pain well controlled with analgesics - OOB, ambulation, diet progression as tolerated - Blood type: O+, GBS neg, rubella immune - Plan to discharge tomorrow - After discharge, 6 week follow up with OB Admission and Anticipated Discharge Date Admission Date: June 23, 2024 Supervising Physician Co-Signing Physician Notes Resident Physician Supervision Note: I interviewed and examined the patient. Discussed with Dr. Solares and agree with findings and plan as documented in the note. Any exceptions or clarifications are listed here: [None] Documented By: Bia Hui MD, FACOG Subjective 23 yo post-operative day 2 s/p LTCS Ambulation: ambulating normally Voiding: no voiding problems Passing Gas:: Yes Diet Tolerance:: regular diet Lochia:: Small Feeding Type:: breast feeding and bottle feeding Current Pain Level: 1-2/10 Resting comfortably this AM in NAD. Denies PALENCIA, CP, SOB, N/V/D, LE pain/swelling. Physical Exam Physical Exam: General: patient resting comfortably, NAD, non-toxic in appearance, answers questions appropriately. Skin: warm, dry, intact HEENT: NC/AT, anicteric sclera, conjunctiva without injection, moist mucus membranes. Heart: +S1/S2, regular, no m/r/g Lungs: equal air entry bilaterally, no rales/rhonchi/wheezes Abd: +BS, soft, NT/ND, uterine fundus firm at umbilicus Ext: warm, no clubbing/cyanosis or edema, Mimi's neg. Neuro: nonfocal, speech intact, no facial droop, moving all extremities. Results & Data Vital Signs (Past 12 Hours) Vital Signs Temp Pulse Resp BP Pulse Ox O2 Del Method 06/24/24 20:00 37.2 C 96 H 16 137/79 97 Room Air Resident Activity Tracking Resident Involvement: Resident Care Provided Care Provided: OB Delivery (1) Encounter for assessment visit type: exam and care immediately after delivery Qualified Code(s): Z39.0 - Encounter for care and examination of mother immediately after delivery
[2024-06-25 07:41] VITALS: BP 118/74; PULSE 83; TEMP 98.6
[2024-06-25] MEDS ORDERED: bisacodyL 10 MG SUPP PR PRN (18:21)
[2024-06-25] MEDS ORDERED: ACETAMINOPHEN 325 MG TAB PO PRN (23:21)
[2024-06-25] MEDS ORDERED: IBUPROFEN 600 MG TAB PO PRN (23:21)
[2024-06-26] MEDS ORDERED: KETOROLAC 30 MG/ML VIAL IV SCH (06:00)
--- NOTE | 2024-06-28 08:49 | Discharge Summary ---
Date of Service June 28, 2024 Admission HPI Per Admitting Provider Patient is a 23yowf with iup at 38 6/7 weeks who presents for iol for iugr. Last measured efw 9%. Patient had bulb placed last night and it fell out around midnight. She has had some bleeding but minimal. Some cramping. and Delivery Plans Late presentation to care *dating by 3rd tri u/s *neg drug profile GDM at 30 wks *Begin monthly Growth US's @24wks IUGR 9%ile at 36 weeks *Twice weekly NST/DVP@Dx *Weeklyl doppler@Dx *Growth US Q4wk @Dx *Deliver [id number] (unless abnml flow) - IOL 06/23 *Deliver 37wks (less than 3rd%) OB Labs: Blood Type O Positive 04/12/24 Antibody Screen NEGATIVE 04/12/24 Hgb 11.8 g/dl (12.0-16.0) L 04/12/24 Hct 36.4 % (37.0-47.0) L 04/12/24 MCV 86.3 fL (80.0-100.0) 04/12/24 Plt Count 230 K/uL (130-400) 04/12/24 VZV IgG Antibody 256.60 index 04/16/23 Rubella IgG Antibody Immune (Immune) 04/12/24 Treponema pallidum Ab Negative (Negative) 04/12/24 Hep Bs Antigen Negative (Negative) 04/12/24 Hepatitis C Antibody Negative (Negative) 04/12/24 Hepatitis C Ab (EIA) NON-REACTIVE (NON-REACTIVE) 04/16/23 HIV 1&2 Ab/P24 Ag 4thGn Negative (Negative) 04/12/24 Glucose 1 Hr 50 gm 137 mg/dl (70-130) H 04/12/24 OB Optional Labs: Chlamydia trachomatis RNA Not Detected (NotDetected) 04/12/24 Neisseria gonorrhoeae RNA Not Detected (NotDetected) 04/12/24 gbs neg Discharge Data Consultations 06/23/24 08:15 Consult Anesthesiology Stat Procedures Performed Operation Date: 06/23/24 17:26 Actual Procedures p Section in LD for living male child at 1741(Bilateral) - Niurka Love MD, FACOG Hospital Course (1) S/P section: (2) 38 weeks gestation of : (3) IUGR (intrauterine growth restriction) affecting care of mother: (4) Gestational diabetes mellitus (GDM) affecting , antepartum: Plan Patient was admitted for iol for iugr. Although the fetus started the iol with category one tracing, fetus had first essentially spontaneous decel when pitocin was at 2mu. Spontaneous recovery and continued to proceed, but with any significant stressor, the fetus had a decel. About 40 minutes after her epidural, she had a hypotensive episode and a decel to the 60s that lasted for approximately 7-8 minutes. The fetus did eventually recover, but that had been the 3 or 4 decel and we were still quite some way from delivery. After discussion of the pros and cons of continued labor, decision made to proceed with c/s. The patient underwent a primary low transverse c/s without complication. Apgars 1/9. qbl 556 cc. A nuchal cord x 2 was noted at the time of delivery, fluid clear. The patient's postop course was uneventful--tolerated a regular diet, voided after removal of Lemus, tolerated oral pain meds, ambulated without difficulty. Was d/c home on postoperative day 2. d/c h/h 10.3/31.6. Instructions given and f/u in the office at 6 weeks. Coding Level of Care Code None Diagnoses S/P section Z98.891 38 weeks gestation of Z3A.38 IUGR (intrauterine growth restriction) affecting care of mother O36.5990 Gestational diabetes mellitus (GDM) affecting , antepartum O24.419
== END 2024-06-25 15:59 | disposition home or self-care (01) | DRG 788 ==
LOC: 4S1 07:42 → 4E2 22:28